=== PATIENT | male | born 1965 | race Two or more races ===

== ENCOUNTER 2024-02-19 15:41 | Inpatient (IN) | payer OTHER ==
[2024-02-18 23:30] VITALS: BP 109/76; PULSE 118; RESP 20; TEMP 98.3
[~2024-02-19] VITALS: Ht 170.2 cm; Wt 47.0 kg
[2024-02-19] MEDS: SODIUM CHLORIDE 0.9% 1000ML BAG (SEPSIS BOLUS) IV ONE (17:25)
[2024-02-19 17:27] LABS: BASOPHILS % 0.1 % (0.0-2.0); DIFFERENTIAL COMMENT 0; EOSINOPHILS % 0.2 % (0.0-5.0); HEMATOCRIT. 25.5 % (42.0-52.0); HEMOGLOBIN. 7.7 g/dL (14.0-18.0); LYMPHOCYTES % 9.1 % (20.0-50.0); MEAN CORPUSCULAR HEMOGLOBIN 23.5 pg (28.0-32.0); MEAN CORPUSCULAR HGB CONC 30.4 g/dL (31.0-37.0); MEAN CORPUSCULAR VOLUME 77.3 fL (80.0-94.0); MEAN PLATELET VOLUME 6.6 fl (7.4-10.4); MONOCYTES % 4.8 % (2.0-8.0); NEUTROPHILS % 85.8 % (40.0-76.0); PLATELET 735 x1000/uL (130-400); RED BLOOD CELL COUNT 3.29 mill/uL (4.7-6.1); RED CELL DISTRIBUTION WIDTH 17.2 % (11.6-14.6)
[2024-02-19 17:37] LABS: INR 1.1; PROTHROMBIN TIME 11.9 sec (9.6-11.0)
[2024-02-19 17:42] LABS: CARBON DIOXIDE 28 mEq/L (21-32); CHLORIDE 106 mEq/L (98-107); POTASSIUM 3.8 mEq/L (3.5-5.1); SODIUM 140 mEq/L (136-145)
[2024-02-19 17:43] LABS: CALCIUM 8.2 mg/dL (8.7-10.4)
[2024-02-19 17:48] LABS: CREATININE 0.8 mg/dL (0.6-1.3); GLUCOSE 94 mg/dL (70-105); UREA NITROGEN BLOOD 14 mg/dL (9-23)
[2024-02-19 17:49] LABS: TROPONIN I HIGH SENSITIVITY < 4 ng/L (3.0-53)
[2024-02-19 17:50] LABS: ALANINE AMINOTRANSFERASE 24 IU/L (10-49); ALBUMIN 2.4 g/dL (3.2-4.8); ASPARTATE AMINOTRANSFERASE 27 IU/L (<34); BILIRUBIN TOTAL 0.4 mg/dL (0.1-1.0); PROTEIN TOTAL 7.9 g/dL (6.0-8.3)
[2024-02-19 19:05] LABS: CLARITY URINE TURBID (CLEAR); COLOR URINE YELLOW (YELLOW); GLUCOSE URINE NEGATIVE (NEGATIVE); KETONES URINE TRACE (NEGATIVE); LEUKOCYTE ESTERASE URINE 3+ (NEGATIVE); NITRITE URINE NEGATIVE (NEGATIVE); OCCULT BLOOD URINE 2+ (NEGATIVE); PH URINE 6.5 (4.5-8.0); PROTEIN URINE 3+ (NEGATIVE); SPECIFIC GRAVITY URINE 1.019 (1.005-1.030)
[2024-02-19 19:47] LABS: BACTERIA URINE 2+; RBC URINE 15-25 /hpf (0-2); SQUAMOUS EPITHELIAL CELL URINE 1+ /lpf (RARE/1+); WBC URINE TNTC /hpf (0-2)
[2024-02-19 20:12] LABS: TROPONIN I HIGH SENSITIVITY < 4 ng/L (3.0-53)
[2024-02-19] MEDS: ENOXAPARIN 80MG/0.8ML SYR SUBCUT ONE (21:15)
[2024-02-19 23:30] VITALS: BP 109/76; PULSE 118; RESP 20; TEMP 99
[2024-02-19 23:34] VITALS: BP 109/76; PULSE 113; RESP 22; TEMP 98.3
[2024-02-20] VITALS (9 sets, daily range): BP systolic 97–118; BP diastolic 68–90; PULSE 90–108; RESP 15–19; TEMP 96.6–98.5
[2024-02-20] MEDS ORDERED: HYDROCODONE/ACETAMINOPHEN 5/325MG TABLET PO PRN (00:30)
[2024-02-20] MEDS: PIPERACILLIN/TAZO 3.375G/50ML 50 ML IV SCH (03:22)
[2024-02-20] MEDS: PANTOPRAZOLE 40MG DR TABLET PO SCH (06:11)
[2024-02-20 07:15] LABS: BASOPHILS % 0.3 % (0.0-2.0); DIFFERENTIAL COMMENT 0; EOSINOPHILS % 1.1 % (0.0-5.0); LYMPHOCYTES % 11.9 % (20.0-50.0); MEAN CORPUSCULAR HEMOGLOBIN 23.9 pg (28.0-32.0); MEAN PLATELET VOLUME 6.7 fl (7.4-10.4); NEUTROPHILS % 80.7 % (40.0-76.0); PLATELET 648 x1000/uL (130-400); RED BLOOD CELL COUNT 2.71 mill/uL (4.7-6.1); WHITE BLOOD COUNT 11.7 x1000/uL (4.5-11.0)
[2024-02-20 07:25] LABS: CARBON DIOXIDE 29 mEq/L (21-32); CHLORIDE 108 mEq/L (98-107); POTASSIUM 3.5 mEq/L (3.5-5.1); SODIUM 143 mEq/L (136-145)
[2024-02-20 07:26] LABS: CALCIUM 7.5 mg/dL (8.7-10.4)
[2024-02-20 07:31] LABS: CREATININE 0.7 mg/dL (0.6-1.3); GLUCOSE 92 mg/dL (70-105); UREA NITROGEN BLOOD 15 mg/dL (9-23)
[2024-02-20 08:28] LABS: HEPATITIS B SURFACE ANTIGEN NEGATIVE (Negative)
[2024-02-20] MEDS ORDERED: CHOL-36 PO (08:29)
[2024-02-20] MEDS ORDERED: FURO20TA4 PO (08:29)
[2024-02-20] MEDS ORDERED: CIPR500T5 PO (08:29)
[2024-02-20] MEDS ORDERED: HYDR-4001 PO (08:29)
[2024-02-20 08:39] LABS: HEMOGLOBIN. 6.5 g/dL (14.0-18.0)
[2024-02-20 08:40] LABS: HEMATOCRIT. 20.9 % (42.0-52.0)
[2024-02-20 08:50] LABS: HEPATITIS C AB NON REACTIVE (Neg) (Negative)
[2024-02-20] MEDS ORDERED: NALOXONE HCL 0.4MG/ML VIAL IV PRN (11:15)
[2024-02-20 11:33] LABS: ALBUMIN 2.1 g/dL (3.2-4.8)
[2024-02-20 12:10] LABS: PREALBUMIN < 5.0 mg/dl (10.0-40.0)
[2024-02-20 13:34] LABS: IRON 16 ug/dL (65-175)
[2024-02-20 13:37] LABS: TOTAL IRON BINDING CAPACITY 164 ug/dl (250-425)
[2024-02-20 13:40] LABS: VITAMIN B12 SERUM 614 pg/mL (211-911)
[2024-02-20 13:41] LABS: FERRITIN 188 ng/mL (22-322); FOLIC ACID (FOLATE) SERUM 7.64 ng/mL (>5.38)
[2024-02-20] MEDS: VANCOMYCIN 1GM/200ML PMX (BAXTER) IV SCH (14:17)
[2024-02-20] MEDS: ENOXAPARIN 60MG/0.6ML SYR SUBCUT SCH (17:25)
[2024-02-20 20:55] LABS: BASOPHILS % 0.1 % (0.0-2.0); DIFFERENTIAL COMMENT 0; EOSINOPHILS % 0.7 % (0.0-5.0); HEMATOCRIT. 27.7 % (42.0-52.0); HEMOGLOBIN. 8.5 g/dL (14.0-18.0); LYMPHOCYTES % 13.7 % (20.0-50.0); MEAN CORPUSCULAR HEMOGLOBIN 24.5 pg (28.0-32.0); MEAN CORPUSCULAR HGB CONC 30.7 g/dL (31.0-37.0); MEAN CORPUSCULAR VOLUME 79.7 fL (80.0-94.0); MEAN PLATELET VOLUME 6.5 fl (7.4-10.4); MONOCYTES % 6.4 % (2.0-8.0); NEUTROPHILS % 79.1 % (40.0-76.0); PLATELET 651 x1000/uL (130-400); RED BLOOD CELL COUNT 3.47 mill/uL (4.7-6.1); RED CELL DISTRIBUTION WIDTH 17.4 % (11.6-14.6); WHITE BLOOD COUNT 14.3 x1000/uL (4.5-11.0)
[2024-02-20] MEDS: IOHEXOL-350 100 ML BOTTLE ONE (22:28)
[2024-02-21] VITALS: BP 107/78; PULSE 98; RESP 20
[2024-02-21 04:00] VITALS: BP 105/75; PULSE 98; RESP 16; TEMP 98.3
[2024-02-21] MEDS: VANCOMYCIN 750MG/150ML IV SCH (06:49)
[2024-02-21 07:16] LABS: BASOPHILS % 0.4 % (0.0-2.0); DIFFERENTIAL COMMENT 0; EOSINOPHILS % 0.7 % (0.0-5.0); HEMATOCRIT. 24.8 % (42.0-52.0); HEMOGLOBIN. 7.8 g/dL (14.0-18.0); LYMPHOCYTES % 12.7 % (20.0-50.0); MEAN CORPUSCULAR HEMOGLOBIN 24.1 pg (28.0-32.0); MEAN CORPUSCULAR HGB CONC 31.5 g/dL (31.0-37.0); MEAN CORPUSCULAR VOLUME 76.4 fL (80.0-94.0); MEAN PLATELET VOLUME 6.4 fl (7.4-10.4); MONOCYTES % 7.2 % (2.0-8.0); PLATELET 629 x1000/uL (130-400); RED BLOOD CELL COUNT 3.25 mill/uL (4.7-6.1); RED CELL DISTRIBUTION WIDTH 17.1 % (11.6-14.6); WHITE BLOOD COUNT 12.6 x1000/uL (4.5-11.0)
[2024-02-21 07:59] LABS: CHLORIDE 107 mEq/L (98-107); POTASSIUM 3.4 mEq/L (3.5-5.1); SODIUM 140 mEq/L (136-145)
[2024-02-21 08:00] VITALS: BP 105/88; PULSE 98; RESP 15; TEMP 97.7
[2024-02-21 08:00] LABS: CALCIUM 7.4 mg/dL (8.7-10.4); CARBON DIOXIDE 28 mEq/L (21-32)
[2024-02-21 08:05] LABS: CREATININE 0.7 mg/dL (0.6-1.3); GLUCOSE 79 mg/dL (70-105); UREA NITROGEN BLOOD 12 mg/dL (9-23)
[2024-02-21] MEDS: IRON SUCROSE COMPLEX 100 MG/5 ML ML IV SCH (09:21)
[2024-02-21] MEDS: FOLIC ACID 1MG TABLET PO SCH (09:21)
[2024-02-21 12:00] VITALS: BP 111/82; PULSE 105; RESP 14; TEMP 98.2
[2024-02-21 16:00] VITALS: BP 111/78; PULSE 107; RESP 18; TEMP 98.7
[2024-02-21 17:15] LABS: *AMPHETAMINES SCREEN URINE NEGATIVE (NEGATIVE); *BARBITURATES SCREEN URINE NEGATIVE (NEGATIVE); *BENZODIAZEPINES SCREEN URINE NEGATIVE (NEGATIVE); *COCAINE SCREEN URINE NEGATIVE (NEGATIVE); METHADONE URINE SCREEN NEGATIVE (NEGATIVE)
[2024-02-21 17:16] LABS: CANNABINOID URINE SCREEN NEGATIVE (NEGATIVE); ECSTASY MDMA SCREEN URINE NEGATIVE (NEGATIVE); OPIATES URINE SCREEN NEGATIVE (NEGATIVE); PHENCYCLIDINE URINE SCREEN NEGATIVE (NEGATIVE)
[2024-02-21 20:00] VITALS: BP 115/85; PULSE 85; RESP 18; TEMP 97.9
[2024-02-22] VITALS: BP 115/60; PULSE 85; RESP 14; TEMP 97.6
[2024-02-22 03:11] LABS: BASOPHILS % 0.4 % (0.0-2.0); DIFFERENTIAL COMMENT 0; EOSINOPHILS % 1.3 % (0.0-5.0); HEMATOCRIT. 23.5 % (42.0-52.0); HEMOGLOBIN. 7.5 g/dL (14.0-18.0); LYMPHOCYTES % 11.1 % (20.0-50.0); MEAN CORPUSCULAR HEMOGLOBIN 24.1 pg (28.0-32.0); MEAN CORPUSCULAR HGB CONC 31.8 g/dL (31.0-37.0); MEAN CORPUSCULAR VOLUME 75.8 fL (80.0-94.0); MEAN PLATELET VOLUME 6.1 fl (7.4-10.4); MONOCYTES % 7.3 % (2.0-8.0); NEUTROPHILS % 79.9 % (40.0-76.0); PLATELET 639 x1000/uL (130-400); RED CELL DISTRIBUTION WIDTH 17.3 % (11.6-14.6); WHITE BLOOD COUNT 12.7 x1000/uL (4.5-11.0)
[2024-02-22 03:21] LABS: CHLORIDE 105 mEq/L (98-107); POTASSIUM 3.7 mEq/L (3.5-5.1); SODIUM 136 mEq/L (136-145)
[2024-02-22 03:22] LABS: CARBON DIOXIDE 27 mEq/L (21-32)
[2024-02-22 03:27] LABS: CREATININE 0.6 mg/dL (0.6-1.3); GLUCOSE 83 mg/dL (70-105); UREA NITROGEN BLOOD 10 mg/dL (9-23)
[2024-02-22 04:00] VITALS: BP 120/65; PULSE 89; RESP 14; TEMP 97.5
[2024-02-22 08:00] VITALS: BP 103/68; PULSE 108; RESP 18; TEMP 97.8
[2024-02-22 12:00] VITALS: BP 107/70; PULSE 92; RESP 16; TEMP 98.1
[2024-02-22] MEDS ORDERED: CEFAZOLIN 2GM/100ML 100 ML IV SCH (14:00)
[2024-02-22] MEDS: PIPERACILLIN/TAZO 3.375G/50ML 50 ML IV SCH (14:51)
[2024-02-22 16:00] VITALS: BP 100/69; PULSE 97; RESP 18; TEMP 98.3
[2024-02-22 20:00] VITALS: BP 118/62; PULSE 90; RESP 17; TEMP 98.3
[2024-02-23] VITALS (8 sets, daily range): BP systolic 104–122; BP diastolic 62–79; PULSE 78–101; RESP 14–18; TEMP 97.8–98.2
[2024-02-23 07:24] LABS: BASOPHILS % 0.3 % (0.0-2.0); DIFFERENTIAL COMMENT 0; EOSINOPHILS % 1.2 % (0.0-5.0); HEMATOCRIT. 24.9 % (42.0-52.0); HEMOGLOBIN. 7.7 g/dL (14.0-18.0); LYMPHOCYTES % 11.3 % (20.0-50.0); MEAN CORPUSCULAR HGB CONC 31.1 g/dL (31.0-37.0); MEAN CORPUSCULAR VOLUME 77.2 fL (80.0-94.0); MEAN PLATELET VOLUME 6.5 fl (7.4-10.4); MONOCYTES % 6.2 % (2.0-8.0); PLATELET 731 x1000/uL (130-400); RED BLOOD CELL COUNT 3.23 mill/uL (4.7-6.1); RED CELL DISTRIBUTION WIDTH 17.2 % (11.6-14.6); WHITE BLOOD COUNT 13.3 x1000/uL (4.5-11.0)
[2024-02-23 08:12] LABS: ALPHA FETOPROTEIN TUMOR MARKER 3.5 ng/mL (0.0-8.4); CARCINOEMBRYONIC AG - SEND OUT 15.2 ng/mL (0.0-4.7)
[2024-02-23 08:20] LABS: CHLORIDE 107 mEq/L (98-107); POTASSIUM 4.1 mEq/L (3.5-5.1); SODIUM 139 mEq/L (136-145)
[2024-02-23 08:21] LABS: CALCIUM 7.4 mg/dL (8.7-10.4)
[2024-02-23 08:26] LABS: CARBON DIOXIDE 25 mEq/L (21-32); CREATININE 0.7 mg/dL (0.6-1.3); GLUCOSE 65 mg/dL (70-105); UREA NITROGEN BLOOD 9 mg/dL (9-23)
[2024-02-23] MEDS ORDERED: LIDOCAINE HCL 1% 10 MG/ML 10ML VIAL ONE (14:04)
[2024-02-24] VITALS (8 sets, daily range): BP systolic 96–111; BP diastolic 66–87; PULSE 85–104; RESP 13–20; TEMP 98.2–99.2
[2024-02-24 06:12] LABS: BASOPHILS % 0.5 % (0.0-2.0); DIFFERENTIAL COMMENT 0; HEMATOCRIT. 26.8 % (42.0-52.0); LYMPHOCYTES % 11.6 % (20.0-50.0); MEAN CORPUSCULAR HEMOGLOBIN 23.5 pg (28.0-32.0); MEAN CORPUSCULAR HGB CONC 29.9 g/dL (31.0-37.0); MEAN CORPUSCULAR VOLUME 78.6 fL (80.0-94.0); MEAN PLATELET VOLUME 6.3 fl (7.4-10.4); MONOCYTES % 6.2 % (2.0-8.0); NEUTROPHILS % 80.7 % (40.0-76.0); PLATELET 714 x1000/uL (130-400); RED CELL DISTRIBUTION WIDTH 17.7 % (11.6-14.6); WHITE BLOOD COUNT 14.1 x1000/uL (4.5-11.0)
[2024-02-24 06:24] LABS: CALCIUM 7.6 mg/dL (8.7-10.4); CHLORIDE 108 mEq/L (98-107); POTASSIUM 4.4 mEq/L (3.5-5.1); SODIUM 139 mEq/L (136-145)
[2024-02-24 06:25] LABS: CARBON DIOXIDE 27 mEq/L (21-32)
[2024-02-24 06:30] LABS: CREATININE 0.7 mg/dL (0.6-1.3); GLUCOSE 70 mg/dL (70-105); UREA NITROGEN BLOOD 7 mg/dL (9-23)
[2024-02-25] VITALS (18 sets, daily range): BP systolic 103–120; BP diastolic 68–85; PULSE 85–101; RESP 12–19; TEMP 97.2–98.9
[2024-02-25] MEDS ORDERED: LIDOCAINE HCL 1% 10 MG/ML 10ML VIAL ONE (07:10)
[2024-02-25] MEDS ORDERED: IOHEXOL-300 100 ML BOTTLE ONE (07:10)
[2024-02-25 07:33] LABS: BASOPHILS % 0.6 % (0.0-2.0); DIFFERENTIAL COMMENT 0; EOSINOPHILS % 1.3 % (0.0-5.0); HEMOGLOBIN. 8.2 g/dL (14.0-18.0); LYMPHOCYTES % 12.3 % (20.0-50.0); MEAN CORPUSCULAR HEMOGLOBIN 24.9 pg (28.0-32.0); MEAN CORPUSCULAR HGB CONC 31.7 g/dL (31.0-37.0); MEAN CORPUSCULAR VOLUME 78.5 fL (80.0-94.0); MEAN PLATELET VOLUME 6.2 fl (7.4-10.4); MONOCYTES % 7.5 % (2.0-8.0); NEUTROPHILS % 78.3 % (40.0-76.0); PLATELET 701 x1000/uL (130-400); PROTHROMBIN TIME 11.4 sec (9.6-11.0); RED BLOOD CELL COUNT 3.31 mill/uL (4.7-6.1); RED CELL DISTRIBUTION WIDTH 17.8 % (11.6-14.6); WHITE BLOOD COUNT 12.8 x1000/uL (4.5-11.0)
[2024-02-25] MEDS ORDERED: FENTANYL CITRATE/PF 50MCG/ML 2ML VIAL ONE (07:35)
[2024-02-25] MEDS: FENTANYL CITRATE/PF 50MCG/ML 2ML VIAL IV ONE (08:00)
[2024-02-25 08:02] LABS: CARBON DIOXIDE 26 mEq/L (21-32); CHLORIDE 106 mEq/L (98-107); POTASSIUM 4.2 mEq/L (3.5-5.1); SODIUM 137 mEq/L (136-145)
[2024-02-25 08:03] LABS: CALCIUM 7.7 mg/dL (8.7-10.4)
[2024-02-25 08:06] LABS: CREATININE 0.8 mg/dL (0.6-1.3)
[2024-02-25 08:08] LABS: GLUCOSE 69 mg/dL (70-105); UREA NITROGEN BLOOD 8 mg/dL (9-23)
[2024-02-25] MEDS ORDERED: NALOXONE HCL 0.4MG/ML VIAL IV PRN (11:45)
[2024-02-25] MEDS: HYDROCODONE/ACETAMINOPHEN 5/325MG TABLET PO PRN (12:16)
[2024-02-25 13:59] LABS: HEMATOCRIT 27.7 % (42.0-52.0); HEMOGLOBIN 8.6 g/dL (14.0-18.0)
[2024-02-26] VITALS: BP 106/73; PULSE 84; RESP 19; TEMP 97.3
[2024-02-26 04:00] VITALS: BP 110/65; PULSE 101; RESP 19; TEMP 97.9
[2024-02-26 07:18] LABS: CHLORIDE 106 mEq/L (98-107); POTASSIUM 3.8 mEq/L (3.5-5.1); SODIUM 136 mEq/L (136-145)
[2024-02-26 07:19] LABS: CARBON DIOXIDE 26 mEq/L (21-32)
[2024-02-26 07:24] LABS: CREATININE 0.7 mg/dL (0.6-1.3); GLUCOSE 113 mg/dL (70-105); UREA NITROGEN BLOOD 6 mg/dL (9-23)
[2024-02-26 08:00] VITALS: BP_SYST 112; BP_SYST 113; BP_DIAS 71; BP_DIAS 76; PULSE 82; PULSE 93; RESP 18; RESP 19; TEMP 97.3; TEMP 98.3
[2024-02-26 10:37] LABS: BASOPHILS % 0.7 % (0.0-2.0); EOSINOPHILS % 1.1 % (0.0-5.0); HEMATOCRIT. 25.3 % (42.0-52.0); LYMPHOCYTES % 11.4 % (20.0-50.0); MEAN CORPUSCULAR HGB CONC 30.9 g/dL (31.0-37.0); MEAN CORPUSCULAR VOLUME 80.9 fL (80.0-94.0); MEAN PLATELET VOLUME 6.2 fl (7.4-10.4); MONOCYTES % 5.7 % (2.0-8.0); NEUTROPHILS % 81.1 % (40.0-76.0); PLATELET 684 x1000/uL (130-400); RED BLOOD CELL COUNT 3.13 mill/uL (4.7-6.1); RED CELL DISTRIBUTION WIDTH 19.2 % (11.6-14.6); WHITE BLOOD COUNT 11.7 x1000/uL (4.5-11.0)
[2024-02-26 10:40] LABS: HEMOGLOBIN. 7.8 g/dL (14.0-18.0)
[2024-02-26 12:00] VITALS: BP 108/72; PULSE 66; RESP 20; TEMP 98.4
[2024-02-26] MEDS ORDERED: APIX5TAB MT (13:53)
[2024-02-26] MEDS ORDERED: HYDR-4001 PO (13:53)
[2024-02-26 16:00] VITALS: BP 118/83; PULSE 96; RESP 20; TEMP 99
[2024-02-27 04:00] VITALS: BP 96/65; PULSE 99; RESP 18; TEMP 97.5
[2024-02-27 08:00] VITALS: BP 115/79; PULSE 73; TEMP 98.1
[2024-02-27 12:00] VITALS: BP 102/70; PULSE 73; RESP 18; TEMP 98.1
[2024-02-27 14:58] VITALS: BP 102/70; PULSE 73; TEMP 98; O2SAT 97
[2024-02-27] MEDS: CEFTRIAXONE 2GM/50ML 50 ML IV NR (15:11)
== END 2024-02-27 16:18 | disposition home health service (06) | DRG 871 ==
LOC: ER 15:41 → 3WST 21:11 → ER 23:19 → 6WST 02-25 15:22
PROVIDERS: ADMIT Internal Medicine; ATTEND Internal Medicine
PROC: 30233N1 Transfusion of Nonautologous Red Blood Cells into Peripheral Vein, Percutaneous Approach (ICD-10-PCS; 2024-02-20)
PROC: 05HY33Z Insertion of Infusion Device into Upper Vein, Percutaneous Approach (ICD-10-PCS; principal; 2024-02-23)
PROC: B54MZZA Ultrasonography of Right Upper Extremity Veins, Guidance (ICD-10-PCS; 2024-02-23)
PROC: 0T9030Z Drainage of Right Kidney with Drainage Device, Percutaneous Approach (ICD-10-PCS; 2024-02-25)
PROC: 0FB13ZX Excision of Right Lobe Liver, Percutaneous Approach, Diagnostic (ICD-10-PCS; 2024-02-25)
DX: A41.01 Sepsis due to Methicillin susceptible Staphylococcus aureus (principal); E43 Unspecified severe protein-calorie malnutrition; J90 Pleural effusion, not elsewhere classified; C78.7 Secondary malignant neoplasm of liver and intrahepatic bile duct; N13.6 Pyonephrosis; R18.8 Other ascites; I82.402 Acute embolism and thrombosis of unspecified deep veins of left lower extremity; I82.413 Acute embolism and thrombosis of femoral vein, bilateral; I82.423 Acute embolism and thrombosis of iliac vein, bilateral; M84.48XA Pathological fracture, other site, initial encounter for fracture; Z68.1 Body mass index [BMI] 19.9 or less, adult; B96.89 Other specified bacterial agents as the cause of diseases classified elsewhere; C61 Malignant neoplasm of prostate; D50.9 Iron deficiency anemia, unspecified; D75.839 Thrombocytosis, unspecified; Z79.899 Other long term (current) drug therapy
CPT/HCPCS: 36415; 36573; 50432; 71045; 74178; 76942; 80048; 80053; 80202; 80305; 81003; 82040; 82105; 82270; 82378; 82607; 82728; 82746; 83540; 83550; 83605; 84134; 84145; 84153; 84484; 85014; 85018; 85025; 85044; 86301; 86705; 86850; 86900; 86920; 87077; 87186; 87340; 88307; 93005; 93306; 93971; 97116; 97162; 97530; 99152; 99153; 99291; C1725; C1769; C1893; J0690; J0696; J1650; J2543; J3010; J3370; J3490; J7030; P9016; Q9967; G0500